=== PATIENT | female | born 1975 | race Caucasian/White ===

== ENCOUNTER → 2016-04-07 | Outpatient (CLI) | payer OTHER ==
--- NOTE | 2016-04-07 14:12 | US ---
Transabdominal and Endovaginal Pelvic Ultrasound Clinical History: 40-year-old female with a history of an ovarian cyst who is BRCA2 gene mutation pos itive. The patient surgical history is notable for a prior section. LMP: 03/23/2016. The patient is . TECHNIQUE: A curvilinear 5 MHz transducer was initially used to sonographically evaluate the pelvis, using a full urinary bladder as a window. To better assess the uterine architecture and the adnexal s tructures, endovaginal pelvic sonography was also performed. Color and spectral Doppler were used. Comparison: Pelvic sonography, dated 03/29/2013. Findings: Transabdominal Pelvic Sonography: The uterus is normal in size, shape, and position, measuring 10.1 x 5.0 x 7.3 cm. The visualized aspects of the urinary bladder are normal. The right and left adnexal r egions are obscured by bowel gas. There is no free fluid. Endovaginal Pelvic Sonography: The endometrium thickness measures 7.3 mm, and in the fundal portion o f the endometrium, there is a hyperechoic structure measuring 8 x 3 x 6 mm, potentially representing a small polyp. With color Doppler, there is no flow demonstrated. The previous study in 2014 identifi ed a questionable fibroid in the posterior intramural aspect of the uterus. The myometrium is mildly heterogeneous, although there is no convincing evidence of a fibroid on today's study. The right ovar y measures 3.4 x 2.1 x 2.9 cm, and the left ovary measures 2.8 x 4.3 x 2.3 cm. There are tiny anechoi c follicles. There is no dominant solid or cystic mass, torsion, or free fluid. The resistive index a ssociated with the left ovary 0.54, and with the right ovary is also 0.54. Impression: 1. There is an 8 mm hyperechoic structural in the fundal endometrium, concerning for a small polyp. I f there is further clinical concern, hysteroscopy or hysterosonography could be considered. 2. Normal appearance of the ovaries which contain tiny follicles. There is no dominant solid or cysti c adnexal mass.
== END ==
LOC: FIMAGING 10:27
DX: N88.8 Other specified noninflammatory disorders of cervix uteri (principal); Z15.01 Genetic susceptibility to malignant neoplasm of breast